=== PATIENT | female | born 1965 | race African-American/Black ===

== ENCOUNTER 2021-12-21 11:34 | Inpatient (IN) | payer OTHER ==
[2021-12-21 12:54] VITALS: BMI 33.2
[2021-12-21] MEDS ORDERED: DICYCLOMINE HCL 10 MG CAPSULE PO PRN (14:47)
[2021-12-21] MEDS ORDERED: MAGNESIUM HYDROX 2400MG/30ML ORAL SUSPENSION 30 ML CUP PO PRN (14:47)
[2021-12-21] MEDS ORDERED: LOPERAMIDE HCL 2 MG CAPSULE PO PRN (14:47)
[2021-12-21] MEDS ORDERED: BISMUTH SUBSALICYLATE 524 MG/30 ML PO PRN (14:47)
[2021-12-21] MEDS ORDERED: NICOTINE 10 MG CARTRIDGE (INHALER) IH PRN (14:47)
[2021-12-21] MEDS ORDERED: NALOXONE HCL (KLOXXADO) 8 MG SPRAY NS PRN (14:47)
[2021-12-21] MEDS ORDERED: ACETAMINOPHEN 325 MG TABLET (FP) PO PRN ×2 (14:47)
[2021-12-21] MEDS ORDERED: MAGNESIUM CITRATE 300 ML BOTTLE PO PRN (14:47)
[2021-12-21] MEDS ORDERED: BENZOCAINE/MENTHOL (CHLORASEPTIC ) LOZENGE MM PRN (14:47)
[2021-12-21] MEDS ORDERED: BUPRENORPHINE HCL 150 MCG, BUPRENORPHINE HCL 75 MCG BC PRN (14:47)
[2021-12-21] MEDS ORDERED: IBUPROFEN 400 MG TABLET (FP) PO PRN (14:47)
[2021-12-21] MEDS ORDERED: IBUPROFEN 600 MG TABLET (FP) PO PRN (14:47)
[2021-12-21] MEDS ORDERED: MAG HYDROX/AL HYDROX/SIMETH 30 ML UNIT-DOSE CUP PO PRN (14:47)
[2021-12-21] MEDS ORDERED: ONDANSETRON *ODT* 4 MG TABLET SL PRN (14:47)
[2021-12-21] MEDS ORDERED: diazePAM 5 MG TABLET PO PRN ×2 (14:47)
[2021-12-21] MEDS ORDERED: BUPRENORPHINE HCL 150 MCG FILM BC ONE (15:01)
[2021-12-21] MEDS ORDERED: BUPRENORPHINE HCL 75 MCG FILM BC ONE (15:01)
[2021-12-21] MEDS ORDERED: BUPRENORPHINE HCL 150 MCG, BUPRENORPHINE HCL 75 MCG BC ONE (15:15)
[2021-12-21] MEDS ORDERED: cloNIDine HCL 0.1 MG TABLET PO ONE (15:15)
[2021-12-21] MEDS: NICOTINE 21 MG/24 HOURS TOPICAL PATCH TD SCH (15:21)
[2021-12-21] MEDS: METHOCARBAMOL 500 MG TABLET PO PRN (18:30)
[2021-12-21] MEDS: diazePAM 5 MG TABLET PO SCH ×2 (18:30→22:31)
[2021-12-21] MEDS: hydrOXYzine PAMOATE 25 MG CAPSULE (FP) PO SCH ×2 (18:30→22:31)
[2021-12-21] MEDS ORDERED: cloNIDine HCL 0.1 MG TABLET PO PRN (18:47)
[2021-12-21] MEDS: MELATONIN 5 MG TABLETS PO SCH (22:31)
[2021-12-21] MEDS: THIAMINE HCL 100 MG TABLET (FP) PO SCH (22:31)
[2021-12-22] MEDS ORDERED: BUPRENORPHINE HCL 150 MCG, BUPRENORPHINE HCL 75 MCG BC PRN
[2021-12-22] MEDS: METHOCARBAMOL 500 MG TABLET PO PRN ×2 (01:56→16:02)
[2021-12-22] MEDS: diazePAM 5 MG TABLET PO SCH ×4 (06:14→22:38)
[2021-12-22] MEDS: BUPRENORPHINE HCL 150 MCG, BUPRENORPHINE HCL 75 MCG BC SCH ×2 (06:14→17:58)
[2021-12-22] MEDS: hydrOXYzine PAMOATE 25 MG CAPSULE (FP) PO SCH ×5 (06:15→22:39)
[2021-12-22 07:12] LABS: HEMATOCRIT 42.9 % (32.4-45.2); HEMOGLOBIN 14.3 GM/dL (10.7-15.3); MCH 27.2 pg (25.7-33.7); MCHC 33.5 g/dl (32.0-36.0); MEAN CELL VOLUME 81.3 fl (80-96); PLATELET COUNT 187 10^3/uL (134-434); RBC 5.27 M/mm3 (3.60-5.2); RDW 14.6 % (11.6-15.6); WHITE BLOOD COUNT 4.3 K/mm3 (4.0-10.0)
[2021-12-22 07:34] LABS: BLOOD UREA NITROGEN 8.4 mg/dL (7-18)
[2021-12-22 07:38] LABS: BILIRUBIN,TOTAL 0.5 mg/dL (0.2-1); TOT PROT 7.2 g/dl (6.4-8.2)
[2021-12-22] MEDS: NICOTINE 21 MG/24 HOURS TOPICAL PATCH TD SCH (10:31)
[2021-12-22] MEDS: PRENATAL VITAMINS W/ FOLIC ACID TABLET (FP) PO SCH (10:32)
[2021-12-22] MEDS: MELATONIN 5 MG TABLETS PO SCH (22:38)
[2021-12-22] MEDS: THIAMINE HCL 100 MG TABLET (FP) PO SCH (22:38)
[2021-12-22] MEDS ORDERED: QUEtiapine FUMARATE 50 MG TABLET PO ONE (22:43)
[2021-12-23 02:26] VITALS: RESP 20; TEMP 96.2
[2021-12-23] MEDS ORDERED: TRIMETHOBENZAMIDE HCL 200MG/2ML INJ IM ONE (03:00)
[2021-12-23 03:44] VITALS: BP 160/93; PULSE 55
[2021-12-23] MEDS ORDERED: BUPRENORPHINE HCL 450 MCG FILM BC SCH (06:00)
[2021-12-23] MEDS ORDERED: diazePAM 5 MG TABLET PO SCH (06:00)
[2021-12-23] MEDS ORDERED: ALBUTEROL SO4 HFA INHALER IH PRN (06:10)
[2021-12-23] MEDS: hydrOXYzine PAMOATE 25 MG CAPSULE (FP) PO SCH ×2 (06:49→11:52)
[2021-12-23] MEDS: PRENATAL VITAMINS W/ FOLIC ACID TABLET (FP) PO SCH (11:52)
[2021-12-23] MEDS: NICOTINE 21 MG/24 HOURS TOPICAL PATCH TD SCH (11:53)
[2021-12-24] MEDS ORDERED: BUPRENORPHINE/NALOXONE 4 MG/1 MG FILM PACKET SL SCH (06:00)
[2021-12-24] MEDS ORDERED: diazePAM 5 MG TABLET PO SCH (06:00)
[2021-12-25] MEDS ORDERED: diazePAM 5 MG TABLET PO ONE (06:00)
[2021-12-25] MEDS ORDERED: BUPRENORPHINE/NALOXONE 8 MG/2 MG FILM PACKET SL ONE (06:00)
== END 2021-12-23 13:47 | disposition short-term general hospital (02) | DRG 897 ==
LOC: YASAS 11:34 → Y6N 14:52
PROVIDERS: ADMIT Allergy & Immunology; ATTEND Surgery
PROC: HZ2ZZZZ Detoxification Services for Substance Abuse Treatment (ICD-10-PCS; principal; 2021-12-21)
DX: F11.23 Opioid dependence with withdrawal (principal); F13.20 Sedative, hypnotic or anxiolytic dependence, uncomplicated; F17.210 Nicotine dependence, cigarettes, uncomplicated; F31.9 Bipolar disorder, unspecified; F20.9 Schizophrenia, unspecified; F41.9 Anxiety disorder, unspecified; I10 Essential (primary) hypertension; I25.2 Old myocardial infarction; R07.9 Chest pain, unspecified; R10.9 Unspecified abdominal pain; R11.10 Vomiting, unspecified; Z86.73 Personal history of transient ischemic attack (TIA), and cerebral infarction without residual deficits; Z28.310 Unvaccinated for COVID-19; Z28.9 Immunization not carried out for unspecified reason
CPT/HCPCS: 36415; 80053; 85027; 86780; 93005; 93010; Q0162

== ENCOUNTER 2021-12-22 05:53 | Emergency (ER) | payer OTHER ==
[2021-12-22 06:14] VITALS: BMI 33.2
[2021-12-22] MEDS ORDERED: ACETAMINOPHEN 1000 MG/100 ML BAG IVPB ONE (07:34)
[2021-12-22] MEDS ORDERED: ONDANSETRON 4 MG/2 ML VIAL IVPUSH ONE (07:34)
[2021-12-22] MEDS ORDERED: ACETAMINOPHEN INJECTION 100 ML IVPB ONE (08:00)
[2021-12-22] MEDS ORDERED: ONDANSETRON 4 MG/2 ML VIAL ONE (08:01)
[2021-12-22 09:42] VITALS: BP 153/69; PULSE 63; RESP 20; TEMP 97.8
== END 2021-12-22 10:48 | disposition home or self-care (01) ==
LOC: JER 05:53
PROC: 3E033GC Introduction of Other Therapeutic Substance into Peripheral Vein, Percutaneous Approach (ICD-10-PCS; principal; 2021-12-22)
DX: R07.9 Chest pain, unspecified (principal)
CPT/HCPCS: 36415; 71045-TC-FY; 84484; 93005; 93010; 99285-25; C9803-CS; U0003; U0005

== ENCOUNTER 2021-12-23 06:40 | Inpatient (IN) | payer OTHER ==
[2021-12-23 07:06] VITALS: BMI 33.2
[2021-12-23] MEDS ORDERED: diazePAM CARPU-JECT 10 MG/2 ML DISP.SYRIN IVPUSH ONE ×3 (07:46→11:21)
[2021-12-23] MEDS ORDERED: cloNIDine HCL 0.1 MG TABLET PO ONE ×2 (07:46→11:21)
[2021-12-23] MEDS ORDERED: ONDANSETRON 4 MG/2 ML VIAL IVPUSH ONE (07:49)
[2021-12-23] MEDS ORDERED: SODIUM CHLORIDE 0.9% 500 ML INFUS.BAG IV ONE (07:49)
[2021-12-23] MEDS ORDERED: ACETAMINOPHEN 1000 MG/100 ML BAG IVPB ONE (07:49)
[2021-12-23] MEDS ORDERED: cloNIDine HCL 0.1 MG TABLET ONE ×2 (08:06→11:30)
[2021-12-23] MEDS ORDERED: diazePAM CARPU-JECT 10 MG/2 ML DISP.SYRIN ONE ×3 (08:06→11:30)
[2021-12-23] MEDS ORDERED: ONDANSETRON 4 MG/2 ML VIAL ONE ×2 (08:07→15:05)
[2021-12-23] MEDS ORDERED: ACETAMINOPHEN INJECTION 100 ML IVPB ONE ×2 (08:07→15:05)
[2021-12-23 08:48] LABS: BASO % 0.3 % (0-2.0); EOS % 0.4 % (0-4.5); HEMATOCRIT 43.8 % (32.4-45.2); HEMOGLOBIN 15.1 GM/dL (10.7-15.3); LYMPH % 16.4 % (8-40); MCHC 34.3 g/dl (32.0-36.0); MEAN CELL VOLUME 81.6 fl (80-96); MEAN PLT VOLUME 8.7 fl (7.5-11.1); MONO % 3.7 % (3.8-10.2); NEUT % 79.2 % (42.8-82.8); PLATELET COUNT 174 10^3/uL (134-434); RBC 5.37 M/mm3 (3.60-5.2); RDW 14.9 % (11.6-15.6); WHITE BLOOD COUNT 6.8 K/mm3 (4.0-10.0)
[2021-12-23 09:01] LABS: ACTIVATED PTT 35.9 SECONDS (25.2-36.5); INR 1.04 (0.83-1.09)
[2021-12-23 09:11] LABS: CHLORIDE 103 mmol/L (98-107); SODIUM 137 mmol/L (136-145)
[2021-12-23 09:14] LABS: ALBUMIN 4.1 g/dl (3.4-5.0); ANION GAP 8 MMOL/L (8-16); BLOOD UREA NITROGEN 11.1 mg/dL (7-18); CALCIUM 9.3 mg/dL (8.5-10.1); CO2 26 mmol/L (21-32); GLUCOSE,RANDOM 153 mg/dL (74-106); LIPASE 97 U/L (73-393); MAGNESIUM 1.7 mg/dL (1.8-2.4)
[2021-12-23 09:17] LABS: SGPT/ALT 25 U/L (13-61)
[2021-12-23 09:18] LABS: SGOT/AST 17 U/L (15-37)
[2021-12-23 09:19] LABS: BILIRUBIN,TOTAL 0.5 mg/dL (0.2-1); TOT PROT 7.7 g/dl (6.4-8.2)
[2021-12-23 09:20] LABS: ALK PHOS 86 U/L (45-117)
[2021-12-23] MEDS ORDERED: METOCLOPRAMIDE HCL INJECTION 10 MG/2 ML VIAL ONE ×2 (09:29→09:36)
[2021-12-23] MEDS ORDERED: METOCLOPRAMIDE HCL INJECTION 10 MG/2 ML VIAL IVPUSH ONE (09:31)
[2021-12-23] MEDS ORDERED: MAGNESIUM 1GM/D5W - 1 GM/100 ML IVPB IVPB ONE (11:31)
[2021-12-23] MEDS ORDERED: methaDONE HCL 10 MG TABLET PO ONE (11:54)
[2021-12-23] MEDS ORDERED: SODIUM CHLORIDE 1,000 ML IV SCH (12:00)
[2021-12-23] MEDS ORDERED: diazePAM 5 MG TABLET PO PRN (12:06)
[2021-12-23] MEDS ORDERED: methaDONE HCL 10 MG TABLET ONE (12:32)
[2021-12-23 13:23] LABS: URINE APPEARANCE CLOUDY; URINE BILIRUBIN NEGATIVE (NEGATIVE); URINE COLOR YELLOW; URINE GLUCOSE (UA) NEGATIVE (NEGATIVE); URINE KETONE NEGATIVE (NEGATIVE); URINE LEUK ESTERASE NEGATIVE (NEGATIVE); URINE NITRITE NEGATIVE (NEGATIVE); URINE PROTEIN NEGATIVE (NEGATIVE); URINE UROBILINOGEN 0.2 mg/dL (0.2-1.0)
[2021-12-23] MEDS: ACETAMINOPHEN 1000 MG/100 ML BAG IVPB PRN ×2 (15:19→21:54)
[2021-12-23] MEDS: ONDANSETRON 4 MG/2 ML VIAL IVPUSH PRN ×3 (15:20→23:13)
[2021-12-23] MEDS: diazePAM 5 MG TABLET PO SCH ×2 (16:41→23:12)
[2021-12-23] MEDS: PANTOPRAZOLE SODIUM 40 MG VIAL IVPUSH SCH (18:41)
[2021-12-24] MEDS: cloNIDine HCL 0.1 MG TABLET PO PRN ×2 (02:06→13:45)
[2021-12-24 02:52] VITALS: RESP 18
[2021-12-24] MEDS: ONDANSETRON 4 MG/2 ML VIAL IVPUSH PRN (04:35)
[2021-12-24] MEDS: diazePAM 5 MG TABLET PO SCH ×4 (05:18→23:04)
[2021-12-24] MEDS: ACETAMINOPHEN 1000 MG/100 ML BAG IVPB PRN (07:57)
[2021-12-24] MEDS: PANTOPRAZOLE SODIUM 40 MG VIAL IVPUSH SCH (10:15)
[2021-12-24] MEDS: ENOXAPARIN NA (PORCINE) 40 MG/0.4 ML DISP.SYRIN SQ SCH (10:15)
[2021-12-24 11:43] LABS: BASO % 0.4 % (0-2.0); EOS % 0.5 % (0-4.5); HEMATOCRIT 45.7 % (32.4-45.2); HEMOGLOBIN 15.3 GM/dL (10.7-15.3); LYMPH % 20.3 % (8-40); MCH 27.1 pg (25.7-33.7); MCHC 33.4 g/dl (32.0-36.0); MEAN CELL VOLUME 81.1 fl (80-96); MEAN PLT VOLUME 9.2 fl (7.5-11.1); MONO % 9.3 % (3.8-10.2); NEUT % 69.5 % (42.8-82.8); PLATELET COUNT 226 10^3/uL (134-434); RBC 5.64 M/mm3 (3.60-5.2); RDW 14.9 % (11.6-15.6); WHITE BLOOD COUNT 11.4 K/mm3 (4.0-10.0)
[2021-12-24 11:46] LABS: INR 1.14 (0.83-1.09); PROTHROMBIN TIME (PATIENT) 13.1 SEC (9.7-13.0)
[2021-12-24 11:48] LABS: ACTIVATED PTT 34.7 SECONDS (25.2-36.5)
[2021-12-24 12:14] LABS: ALBUMIN 3.9 g/dl (3.4-5.0); BLOOD UREA NITROGEN 11.4 mg/dL (7-18); MAGNESIUM 2.2 mg/dL (1.8-2.4)
[2021-12-24 12:16] LABS: CREATININE 1.2 mg/dL (0.55-1.3); PHOSPHOROUS 2.4 mg/dL (2.5-4.9)
[2021-12-24 12:18] LABS: BILIRUBIN,TOTAL 0.8 mg/dL (0.2-1); TOT PROT 7.2 g/dl (6.4-8.2)
[2021-12-24] MEDS ORDERED: ACETAMINOPHEN 1000 MG/100 ML BAG IVPB PRN (13:22)
[2021-12-24] MEDS: NAPH,MB-DB/K PH,MBDB POWDER PACKET PO SCH ×2 (13:45→21:11)
[2021-12-24] MEDS ORDERED: QUEtiapine FUMARATE 200 MG TABLET PO SCH (14:15)
[2021-12-24] MEDS: QUEtiapine FUMARATE 100 MG TABLET (FP) PO SCH (15:28)
[2021-12-24] MEDS: OXcarbazepine 300 MG TABLET (UD) PO SCH ×2 (15:54→21:11)
[2021-12-24] MEDS: BENZTROPINE MESYLATE 1 MG TABLET PO SCH (21:11)
[2021-12-24] MEDS: QUEtiapine FUMARATE 200 MG TABLET PO SCH (21:11)
[2021-12-24] MEDS: BUDESONIDE/FORMETEROL FUMARATE 80/4.5 mcg INHALER IH SCH (21:14)
[2021-12-25] MEDS: NAPH,MB-DB/K PH,MBDB POWDER PACKET PO SCH ×3 (06:24→21:18)
[2021-12-25] MEDS: diazePAM 5 MG TABLET PO SCH ×3 (06:25→21:21)
[2021-12-25] MEDS: OXcarbazepine 300 MG TABLET (UD) PO SCH ×3 (06:25→21:21)
[2021-12-25] MEDS: ENOXAPARIN NA (PORCINE) 40 MG/0.4 ML DISP.SYRIN SQ SCH (09:24)
[2021-12-25] MEDS: QUEtiapine FUMARATE 100 MG TABLET (FP) PO SCH (09:24)
[2021-12-25] MEDS: PANTOPRAZOLE SODIUM 40 MG VIAL IVPUSH SCH (09:24)
[2021-12-25] MEDS: SERTRALINE HCL 50 MG TABLET (FP) PO SCH (09:24)
[2021-12-25] MEDS: BENZTROPINE MESYLATE 1 MG TABLET PO SCH ×2 (09:24→21:22)
[2021-12-25] MEDS: BUDESONIDE/FORMETEROL FUMARATE 80/4.5 mcg INHALER IH SCH ×2 (09:25→21:21)
[2021-12-25] MEDS ORDERED: methaDONE HCL 10 MG TABLET PO ONE (10:00)
[2021-12-25] MEDS ORDERED: POLYETHYLENE GLYCOL (HEALTHYLAX) 3350 17 GM PACKET PO SCH (10:15)
[2021-12-25 10:38] LABS: BASO % 0.6 % (0-2.0); EOS % 2.1 % (0-4.5); HEMOGLOBIN 14.2 GM/dL (10.7-15.3); LYMPH % 29.5 % (8-40); MCH 27.7 pg (25.7-33.7); MCHC 33.8 g/dl (32.0-36.0); MEAN CELL VOLUME 81.9 fl (80-96); MEAN PLT VOLUME 8.4 fl (7.5-11.1); MONO % 7.4 % (3.8-10.2); NEUT % 60.4 % (42.8-82.8); PLATELET COUNT 160 10^3/uL (134-434); RBC 5.13 M/mm3 (3.60-5.2); RDW 15.1 % (11.6-15.6); WHITE BLOOD COUNT 6.4 K/mm3 (4.0-10.0)
[2021-12-25 10:56] LABS: CALCIUM 8.6 mg/dL (8.5-10.1)
[2021-12-25 10:57] LABS: ALBUMIN 3.4 g/dl (3.4-5.0); BLOOD UREA NITROGEN 14.1 mg/dL (7-18); MAGNESIUM 2.2 mg/dL (1.8-2.4)
[2021-12-25 11:00] LABS: CREATININE 1.3 mg/dL (0.55-1.3); PHOSPHOROUS 2.6 mg/dL (2.5-4.9)
[2021-12-25 11:01] LABS: BILIRUBIN,TOTAL 0.5 mg/dL (0.2-1); TOT PROT 6.4 g/dl (6.4-8.2)
[2021-12-25] MEDS: QUEtiapine FUMARATE 200 MG TABLET PO SCH (21:18)
[2021-12-25] MEDS: POLYETHYLENE GLYCOL (HEALTHYLAX) 3350 17 GM PACKET PO SCH (21:20)
[2021-12-25] MEDS ORDERED: SENNOSIDES 8.6MG TABLET (FP) PO SCH (22:00)
[2021-12-26] MEDS: NAPH,MB-DB/K PH,MBDB POWDER PACKET PO SCH ×2 (05:06→14:05)
[2021-12-26] MEDS: diazePAM 5 MG TABLET PO SCH ×2 (05:07→17:16)
[2021-12-26] MEDS: OXcarbazepine 300 MG TABLET (UD) PO SCH ×2 (05:07→14:05)
[2021-12-26] MEDS ORDERED: BISACODYL 10 MG SUPP.RECT PR ONE (09:30)
[2021-12-26] MEDS: BENZTROPINE MESYLATE 1 MG TABLET PO SCH (09:31)
[2021-12-26] MEDS: POLYETHYLENE GLYCOL (HEALTHYLAX) 3350 17 GM PACKET PO SCH (09:31)
[2021-12-26] MEDS: SERTRALINE HCL 50 MG TABLET (FP) PO SCH (09:31)
[2021-12-26] MEDS: BUDESONIDE/FORMETEROL FUMARATE 80/4.5 mcg INHALER IH SCH (09:31)
[2021-12-26] MEDS: QUEtiapine FUMARATE 100 MG TABLET (FP) PO SCH (09:31)
[2021-12-26] MEDS: PANTOPRAZOLE SODIUM 40 MG VIAL IVPUSH SCH (09:31)
[2021-12-26] MEDS: ENOXAPARIN NA (PORCINE) 40 MG/0.4 ML DISP.SYRIN SQ SCH (09:32)
[2021-12-26 10:27] LABS: BASO % 0.4 % (0-2.0); EOS % 3.1 % (0-4.5); LYMPH % 31.4 % (8-40); MCHC 34.1 g/dl (32.0-36.0); MEAN CELL VOLUME 82.1 fl (80-96); MEAN PLT VOLUME 8.1 fl (7.5-11.1); MONO % 5.8 % (3.8-10.2); NEUT % 59.3 % (42.8-82.8); PLATELET COUNT 164 10^3/uL (134-434); RBC 5.36 M/mm3 (3.60-5.2); RDW 15.1 % (11.6-15.6)
[2021-12-26 10:42] LABS: ALBUMIN 3.8 g/dl (3.4-5.0); BLOOD UREA NITROGEN 11.3 mg/dL (7-18); CALCIUM 9.2 mg/dL (8.5-10.1)
[2021-12-26 10:43] LABS: CREATININE 1.2 mg/dL (0.55-1.3)
[2021-12-26 10:44] LABS: BILIRUBIN,TOTAL 0.5 mg/dL (0.2-1)
[2021-12-26 10:45] LABS: TOT PROT 6.7 g/dl (6.4-8.2)
[2021-12-26] MEDS ORDERED: methaDONE HCL 10 MG TABLET PO ONE (11:53)
[2021-12-26 13:52] VITALS: BP 120/71; PULSE 86; TEMP 97.8
[2021-12-27] MEDS ORDERED: diazePAM 5 MG TABLET PO ONE (06:00)
[2021-12-27] MEDS ORDERED: methaDONE HCL 10 MG TABLET PO ONE (10:00)
== END 2021-12-26 18:50 | disposition home or self-care (01) | DRG 897 ==
LOC: JER 06:40 → JERBED 11:48 → J6S 16:22
PROVIDERS: ADMIT Internal Medicine; ATTEND Internal Medicine
DX: F11.23 Opioid dependence with withdrawal (principal); F13.239 Sedative, hypnotic or anxiolytic dependence with withdrawal, unspecified; I10 Essential (primary) hypertension; F41.9 Anxiety disorder, unspecified; J45.909 Unspecified asthma, uncomplicated; I16.0 Hypertensive urgency; F31.9 Bipolar disorder, unspecified; F20.9 Schizophrenia, unspecified; R41.0 Disorientation, unspecified; R00.1 Bradycardia, unspecified; F17.210 Nicotine dependence, cigarettes, uncomplicated; F12.90 Cannabis use, unspecified, uncomplicated; R07.89 Other chest pain; I25.10 Atherosclerotic heart disease of native coronary artery without angina pectoris; R19.7 Diarrhea, unspecified; R10.9 Unspecified abdominal pain; K59.00 Constipation, unspecified
CPT/HCPCS: 36415; 71045-TC-FY; 74019-TC-FY; 74177-TC; 80053; 81003; 82962; 83690; 83735; 84100; 84443; 84484; 84703; 85025; 85610; 85730; 93005; 93010; 99291; C9803-CS; Q9967; U0003; U0005